=== PATIENT | male | born 1975 | race Caucasian/White ===

== ENCOUNTER 2022-10-07 06:07 | Inpatient (IN) ==
[2022-10-07] MEDS ORDERED: ACETAMINOPHEN 1,000 MG/100 ML VIAL IV STA (06:29)
[2022-10-07] MEDS ORDERED: SODIUM CHLORIDE 0.9% 1000ML 1,000 ML IV SCH (06:30)
[2022-10-07] MEDS ORDERED: CEFEPIME 2,000 MG/20 ML VIAL IV STA (06:35)
--- NOTE | 2022-10-07 06:41 | Emergency Department Note ---
History of Present Illness General Chief complaint: Fever Stated complaint: HAD CHEMO ON MONDAY HAS FEVER Time Seen by Provider: 10/07/22 06:29 History of Present Illness Provider complaint: Fever Onset (ago): day(s) 1 Maximum Pain Intensity: 5 Associated symptoms: + fever/chills 46-year-old male with history of pancreatic cancer on chemotherapy presents emergency department for fever. Fever began yesterday at 2330. Tmax one 2.1. Patient reports he took Tylenol at 0530 this morning. He reports no nausea vom iting diarrhea chest pain abdominal pain. No hematuria dysuria melena hematochezia. No neck pain. No rash. Patient reports his second round of chemotherapy just began and he had his infusion done earlier this week. Home Medications Medication Instructions Recorded Confirmed Type lactobacillus combination no.9 4 2 cell PO QAM 08/03/22 10/07/22 History billion cell capsule (Adult 50 Plus Probiotic) multivitamin 1 tab PO QAM 08/03/22 10/07/22 History omega 2-dyf-eim-fish oil 100 1 cap PO QAM 08/03/22 10/07/22 History mg-160 mg-1,000 mg capsule (Fish Oil) oxycodone 5 mg tablet 5 mg PO .q4-6h PRN pain #60 tabs 09/06/22 10/07/22 Rx ondansetron 8 mg disintegrating 8 mg PO Q8H PRN Nausea And Vomiting 10/07/22 10/07/22 History tablet Allergies Allergy/AdvReac Type Severity Reaction Status Date / Time No Known Allergies Allergy Verified 09/16/22 05:49 Past Med/Surg History Medical History Facial fracture entered 08/03/22 per EMR, however not noted in office visit from that date GERD (gastroesophageal reflux disease) History of COVID-01 December 2020 Pancreatitis end of July 2022 treated at [facility] and [facility]. Positive colorectal cancer screening using Cologuard test per patient -> awaiting to have colonoscopy scheduled. Surgical History History of ERCP with stent placement at [facility] 08/2022. History of facial surgery (~1993) has a metal plate left near the temporal area. History of surgery on right wrist Hx of endoscopy Endoscopic ultrasonography at [facility] first of august 2022 with a pancreatic biopsy Port-A-Cath in place (09/16/22) Insertion Access Port with Fluoroscopy(Left) - Lizzie Raymond, S/P ACL surgery RT S/P tonsillectomy and adenoidectomy S/P wisdom tooth extraction Family History Mother Esophageal cancer Grandfather (Maternal) Bladder cancer Father , MVA MVA (motor vehicle accident) Denies family history of Ovarian cancer Prostate cancer Myocardial infarction Breast cancer Colorectal cancer Social History Smoking Status: Former smoker Tobacco Type: Cigarettes, E-cigarettes / Vaping and Smokeless Tobacco (Dip or Chew) Age Started Using Tobacco: 20; Age Quit Using Tobacco: 33; packs per day: 1; Second Hand Exposure: No; Do You Dip or Chew Tobacco: No (quit in his 20's); Hx Alcohol Use: No Hx Substance Use: No Preferred Language: Turkmen Communication Ability: Effective Visual Impairment: No Limitations Hearing Ability: Normal 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 Required: No Beliefs That Will Affect Care: None marital status: Current Living Situation: Spouse current occupational status: employed 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 How many Children do You have: 2 Feels Safe at Home: Yes Childhood Exposure to Second-Hand Smoke: Yes Diet: other and regular Diet Comment: Low fat during the past year weight has: decreased > 10 lbs Dental Care, Regularly: Yes Physical Activity Frequency: 5-6 Times per Week Seatbelt Use: always Sunscreen Use: Yes Assistive Devices: Glasses Physical Exam Vital Signs Vital Signs - 24 hr 10/07/22 06:15 10/07/22 06:59 10/07/22 07:30 Temperature 37.9 C H Temperature Source Oral Pulse Rate 85 Pulse Rate [Apical] 71 Respiratory Rate 18 20 Respiratory Effort / Characteristics Non-Labored Spontaneous Non-Labored Respiratory Depth Normal Blood Pressure 127/77 Blood Pressure [Left Arm] 95/76 L Blood Pressure Mean 93 Blood Pressure Mean [Left Arm] 82 Pulse Oximetry 95 100 95 Oxygen Delivery Method Room Air Room Air Room Air Sepsis Recent Fever Within 48 Hours Yes Sepsis New/Unexplained Change in Mental Status No Sepsis Action Taken by Nursing No Action Required 10/07/22 07:36 10/07/22 07:54 10/07/22 08:08 Temperature Temperature Source Pulse Rate 72 Pulse Rate [Apical] 76 80 Respiratory Rate 17 13 Respiratory Effort / Characteristics Non-Labored Respiratory Depth Blood Pressure Blood Pressure [Left Arm] 112/77 124/79 Blood Pressure Mean Blood Pressure Mean [Left Arm] 88 94 Pulse Oximetry 95 95 Oxygen Delivery Method Room Air Room Air Sepsis Recent Fever Within 48 Hours Sepsis New/Unexplained Change in Mental Status Sepsis Action Taken by Nursing 10/07/22 08:38 10/07/22 08:57 10/07/22 09:08 Temperature 36.5 C Temperature Source Oral Pulse Rate Pulse Rate [Apical] 70 70 Respiratory Rate 20 18 Respiratory Effort / Characteristics Non-Labored Respiratory Depth Blood Pressure Blood Pressure [Left Arm] 107/71 119/77 Blood Pressure Mean Blood Pressure Mean [Left Arm] 83 91 Pulse Oximetry 96 96 Oxygen Delivery Method Room Air Room Air Sepsis Recent Fever Within 48 Hours Sepsis New/Unexplained Change in Mental Status Sepsis Action Taken by Nursing 10/07/22 09:41 Temperature Temperature Source Pulse Rate Pulse Rate [Apical] 68 Respiratory Rate 19 Respiratory Effort / Characteristics Non-Labored Respiratory Depth Blood Pressure Blood Pressure [Left Arm] 116/75 Blood Pressure Mean Blood Pressure Mean [Left Arm] 88 Pulse Oximetry 96 Oxygen Delivery Method Room Air Sepsis Recent Fever Within 48 Hours Sepsis New/Unexplained Change in Mental Status Sepsis Action Taken by Nursing Physical Exam GENERAL: He is oriented to person, place, and time. He appears well-developed and well-nourished. He does not appear distressed. HENT: Exam performed. - Head: Normocephalic and atraumatic. - Right Ear: External ear normal. No mastoid erythema - Left Ear: External ear normal. No mastoid erythema - Mouth/Throat: The oropharynx is clear and moist. No trismus in the jaw. No dental abscesses or uvula swelling. No oropharyngeal exudate or tonsillar abscesses. EYES: Conjunctivae and EOM are normal. Pupils are equal, round, and reactive to light. Right eye exhibits no discharge. Left eye exhibits no discharge. No scleral icterus. NECK: Normal range of motion. Neck supple. No JVD present. No rigidity. No tracheal deviation and normal range of motion present. CV: Normal rate, regular rhythm, normal heart sounds and intact distal pulses. There is no peripheral edema. Palpable radial pulses bue. PULM/CHEST: Effort normal and breath sounds normal. No respiratory distress. No stridor. He has no wheezes. He has no rales. - Chest Wall: He exhibits no tenderness. ABD: The abdomen is soft.There is no tenderness. There is no rebound, no guarding. MUSC/SKEL: Normal range of motion. There is no peripheral edema, tenderness or deformity. LYMPH: No cervical adenopathy. NEURO: He is alert and oriented to person, place, and time. He has normal strength. No cranial nerve deficit or sensory deficit. Coordination and gait normal. GCS eye subscore is 4. GCS verbal subscore is 5. GCS motor subscore is 6. Cerebellar tests wnl. SKIN: Skin is warm and dry. He is not diaphoretic. PSYCH: He has a normal mood and affect. Behavior is normal. Judgment and thought content normal. Course Course 06: The patient was evaluated in room C8. A complete history and physical exam was performed Cardiac monitoring: An order was placed for continuous cardiac monitoring. The monitor shows a rate of 80 with sinus rhythm interpreted by md [id number]: Vital signs stable. Labs within normal limits with exception of elevated procalcitonin 0.54. Discussed case with oncology on-call Dr. Veálsquez who agrees with plan to admit the patient and start antibiotics. [facility] hospitalist team will be contacted for admission. 0817: Spoke with Dr. San [facility] [place] [place] hospitalist who states he will evaluate the patient for admission Administered Medications Discontinued Medications Sodium Chloride (Nss 1000ml) 1,000 mls @ 999 mls/hr IV .Q1H1M [facility] Stop: 10/07/22 07:30 Last Infusion: 10/07/22 08:23 Dose: 0 mls/hr Documented By: Admin: 10/07/22 07:22 Dose: 999 mls/hr Documented By: ML Acetaminophen (Ofirmev) 1,000 mg in 100 mls @ 400 mls/hr IV NOW STA Stop: 10/07/22 06:43 Last Admin: 10/07/22 09:18 Dose: Not Given Documented By: ML Cefepime HCl (Maxipime) 2,000 mg in 20 mls @ 5 mls/min IV NOW STA; Protocol Stop: 10/07/22 06:38 Last Admin: 10/07/22 07:22 Dose: 5 mls/min Documented By: JAQUELINE Medical Decision Making Laboratory Data Attestation: I reviewed the patient's lab results. 10/07/22 06:54 10/07/22 06:54 Lab Results 10/07/22 10/07/22 10/07/22 Range/Units 06:41 06:54 06:54 WBC 4.96 (4.8-10.8) K/ul RBC 5.12 (4.70-6.10) M/uL Hgb 14.4 (14.0-18.0) g/dl Hct 41.7 L (42.0-52.0) % MCV 81.4 (80.0-100.0) fL MCH 28.1 (25.0-34.0) pg MCHC 34.5 (32.0-36.0) g/dL RDW Std Deviation 43.9 (36.4-46.3) fL RDW Coeff of Natalie 14.9 H (11.5-14.5) % Plt Count 170 (130-400) K/uL MPV 9.6 (9.4-12.4) fL Immature Gran % (Auto) 0.6 % Neut % (Auto) 73.8 % Lymph % (Auto) 19.6 % [place] % (Auto) 4.4 % Eos % (Auto) 1.4 % Baso % (Auto) 0.2 % Neut # (Auto) 3.66 (1.40-6.50) K/uL Lymph # (Auto) 0.97 L (1.20-3.40) K/uL [place] # (Auto) 0.22 (0.11-0.59) K/uL Eos # (Auto) 0.07 (0.00-0.50) K/uL Baso # (Auto) 0.01 (0.00-0.20) K/uL Immature Gran # (Auto) 0.03 (0.01-0.20) K/uL PT 11.6 (9.0-12.0) Seconds INR 1.1 (0.9-1.1) APTT 28.2 (21.0-31.0) Seconds PTT Ratio 1.0 Sodium (136-145) mmol/L Potassium (3.5-5.1) mmol/L Chloride (98-107) mmol/L Carbon Dioxide (21-32) mmol/L Anion Gap (3-11) BUN (6-23) mg/dl Creatinine (0.6-1.4) mg/dl Est Cr Clr Drug Dosing ml/min Est GFR ( Amer) ml/min Est GFR (Non-Af Amer) ml/min BUN/Creatinine Ratio (10-20) Glucose (70-99(Fasting)) mg/dl Lactate (0.4-2.0) mmol/L Calcium (8.6-10.3) mg/dl Magnesium (1.7-2.4) mg/dl Total Bilirubin (0.2-1.0) mg/dl Direct Bilirubin (0-0.2) mg/dl AST (13-39) U/L ALT (7-52) U/L Alkaline Phosphatase (34-104) U/L Troponin I High Sens (0-20) pg/ml Total Protein (6.0-8.3) gm/dl Albumin (3.4-5.0) gm/dl Lipase (11-82) U/L Procalcitonin (0-0.5) ng/ml Adenovirus (PCR) Not Detected (NotDetected) B. pertussis DNA (PCR) Not Detected (NotDetected) B.parapertussis DNA PCR Not Detected (NotDetected) C. pneumoniae DNA (PCR) Not Detected (NotDetected) Coronavirus OC43 (PCR) Not Detected (NotDetected) Coronavirus HKU1 (PCR) Not Detected (NotDetected) Coronavirus 229E (PCR) Not Detected (NotDetected) SARS-CoV-2 (PCR) Not Detected (NotDetected) Coronavirus NL63 (PCR) Not Detected (NotDetected) Human Metapneumovir PCR Not Detected (NotDetected) Influenza Type A (PCR) Not Detected (NotDetected) Influenza Type B (PCR) Not Detected (NotDetected) M. pneumoniae (PCR) Not Detected (NotDetected) Parainfluenza 1 (PCR) Not Detected (NotDetected) Parainfluenza 2 (PCR) Not Detected (NotDetected) Parainfluenza 3 (PCR) Not Detected (NotDetected) Parainfluenza 4 (PCR) Not Detected (NotDetected) RSV (PCR) Not Detected (NotDetected) Entero/Rhino (PCR) Not Detected (NotDetected) 10/07/22 10/07/22 10/07/22 Range/Units 06:54 06:54 06:54 WBC (4.8-10.8) K/ul RBC (4.70-6.10) M/uL Hgb (14.0-18.0) g/dl Hct (42.0-52.0) % MCV (80.0-100.0) fL MCH (25.0-34.0) pg MCHC (32.0-36.0) g/dL RDW Std Deviation (36.4-46.3) fL RDW Coeff of Natalie (11.5-14.5) % Plt Count (130-400) K/uL MPV (9.4-12.4) fL Immature Gran % (Auto) % Neut % (Auto) % Lymph % (Auto) % [place] % (Auto) % Eos % (Auto) % Baso % (Auto) % Neut # (Auto) (1.40-6.50) K/uL Lymph # (Auto) (1.20-3.40) K/uL [place] # (Auto) (0.11-0.59) K/uL Eos # (Auto) (0.00-0.50) K/uL Baso # (Auto) (0.00-0.20) K/uL Immature Gran # (Auto) (0.01-0.20) K/uL PT (9.0-12.0) Seconds INR (0.9-1.1) APTT (21.0-31.0) Seconds PTT Ratio Sodium 136 (136-145) mmol/L Potassium 4.1 (3.5-5.1) mmol/L Chloride 100 (98-107) mmol/L Carbon Dioxide 29 (21-32) mmol/L Anion Gap 7 (3-11) BUN 29 H (6-23) mg/dl Creatinine 1.14 (0.6-1.4) mg/dl Est Cr Clr Drug Dosing 87.0 ml/min Est GFR ( Amer) 87.7 ml/min Est GFR (Non-Af Amer) 75.6 ml/min BUN/Creatinine Ratio 25.4 H (10-20) Glucose 109 H (70-99(Fasting)) mg/dl Lactate 1.0 (0.4-2.0) mmol/L Calcium 9.3 (8.6-10.3) mg/dl Magnesium 1.8 (1.7-2.4) mg/dl Total Bilirubin 0.7 (0.2-1.0) mg/dl Direct Bilirubin 0.2 (0-0.2) mg/dl AST 23 (13-39) U/L ALT 51 (7-52) U/L Alkaline Phosphatase 101 (34-104) U/L Troponin I High Sens 4.1 (0-20) pg/ml Total Protein 7.0 (6.0-8.3) gm/dl Albumin 4.1 (3.4-5.0) gm/dl Lipase 109 H (11-82) U/L Procalcitonin 0.54 H (0-0.5) ng/ml Adenovirus (PCR) (NotDetected) B. pertussis DNA (PCR) (NotDetected) B.parapertussis DNA PCR (NotDetected) C. pneumoniae DNA (PCR) (NotDetected) Coronavirus OC43 (PCR) (NotDetected) Coronavirus HKU1 (PCR) (NotDetected) Coronavirus 229E (PCR) (NotDetected) SARS-CoV-2 (PCR) (NotDetected) Coronavirus NL63 (PCR) (NotDetected) Human Metapneumovir PCR (NotDetected) Influenza Type A (PCR) (NotDetected) Influenza Type B (PCR) (NotDetected) M. pneumoniae (PCR) (NotDetected) Parainfluenza 1 (PCR) (NotDetected) Parainfluenza 2 (PCR) (NotDetected) Parainfluenza 3 (PCR) (NotDetected) Parainfluenza 4 (PCR) (NotDetected) RSV (PCR) (NotDetected) Entero/Rhino (PCR) (NotDetected) Imaging Data Attestation: I personally reviewed and interpreted this imaging study as follows: My Impression: Chest x-ray negative. Airway clear. No pneumothorax. No consolidation. No cardiomegaly or cephalization.. No free air under the diaphragm. No fractures of the skeletal structures. Radiologist's Impression: Chest X-Ray 10/07/22 06:29 XR chest 1V portable CLINICAL HISTORY: Sepsis. COMPARISON STUDY: Chest radiograph September 16, 2022. FINDINGS: Left subclavian [id number] is unchanged in position. Lung volumes are normal. Lungs are clear. There is no pneumothorax or pleural effusion. Cardiac size is normal. Mediastinal contours are normal. There is no evidence for pulmonary edema. IMPRESSION: No acute cardiopulmonary findings. ACT 112: Negative or not required by law. Electronically signed by: Foreign Brewster M.D. 10/07/2022 7:13 AM ECG Data Attestation: I personally reviewed and interpreted this ECG as follows: Rate (beats per minute): 81 Rhythm: + normal sinus ECG Intervals/blocks: + Normal QRS, + Normal CA and + Normal QT-c ECG ST segments: + Normal ST segments [facility] Narrative 0629: The patient was evaluated in room C8. A complete history and physical exam was performed Cardiac monitoring: An order was placed for continuous cardiac monitoring. The monitor shows a rate of 80 with sinus rhythm interpreted by me 0756: Vital signs stable. Labs within normal limits with exception of elevated procalcitonin 0.54. Discussed case with oncology on-call Dr. Velásquez who agrees with plan to admit the patient and start antibiotics. [facility] hospitalist team will be contacted for admission. 0817: Spoke with Dr. San [facility] [place] [place] hospitalist who states he will evaluate the patient for admission Impression & Plan Pancreatic carcinoma, Fever Discharge Plan Visit Data Chief Complaint: Fever Stated Complaint: HAD CHEMO ON MONDAY HAS FEVER ED Provider: Dany Gaytan Discharge Problem: Pancreatic carcinoma, Fever Patient Disposition: Being Evaluated by Hospitalist Forms Stand Alone Forms: My [facility] Prescriptions Prescriptions: No Action oxycodone 5 mg tablet 5 mg PO .q4-6h PRN (Reason: pain) Qty: 60 0RF Adult 50 Plus Probiotic 4 billion cell capsule 2 cell PO QAM Rx Instructions: Takes 2 capsules by mouth every morning multivitamin Tablet 1 tab PO QAM Fish Oil 100-160-1,000 mg capsule 1 cap PO QAM ondansetron 8 mg tablet,disintegrating 8 mg PO Q8H PRN (Reason: Nausea And Vomiting) Referrals Referrals: Dereck Wilkerson, [Primary Care Provider] -
--- NOTE | 2022-10-07 07:14 | XRay Report ---
XR chest 1V portable CLINICAL HISTORY: Sepsis. COMPARISON STUDY: Chest radiograph September 16, 2022. FINDINGS: Left subclavian Subkot-[id number]-Iibo is unchanged in position. Lung volumes are normal. Lungs are clear. There is no pneumothorax or pleural effusion. Cardiac size is normal. Mediastinal contours are normal. There is no evidence for pulmonary edema. IMPRESSION: No acute cardiopulmonary findings. ACT 112: Negative or not required by law. Electronically signed by: Foreign Brewster M.D. 10/07/2022 7:13 AM
[2022-10-07 07:20] LABS: Basophils # (auto) 0.01 K/uL (0.00-0.20); Basophils % (auto) 0.2 %; Eosinophils # (auto) 0.07 K/uL (0.00-0.50); Eosinophils % (auto) 1.4 %; Hematocrit (blood only) 41.7 % (42.0-52.0); Hemoglobin 14.4 g/dl (14.0-18.0); Immature Granulocytes # (auto) 0.03 K/uL (0.01-0.20); Immature Granulocytes % (auto) 0.6 %; Lymphocytes # (auto) 0.97 K/uL (1.20-3.40); Lymphocytes % (auto) 19.6 %; Mean Corpuscular Hemoglobin 28.1 pg (25.0-34.0); Mean Corpuscular Hgb Conc 34.5 g/dL (32.0-36.0); Mean Corpuscular Volume 81.4 fL (80.0-100.0); Mean Platelet Volume 9.6 fL (9.4-12.4); Monocytes # (auto) 0.22 K/uL (0.11-0.59); Monocytes % (auto) 4.4 %; Neutrophils # (auto) 3.66 K/uL (1.40-6.50); Neutrophils % (auto) 73.8 %; Platelet Count 170 K/uL (130-400); RDW Coefficient of Variation 14.9 % (11.5-14.5); RDW Standard Deviation 43.9 fL (36.4-46.3); Red Blood Count 5.12 M/uL (4.70-6.10); White Blood Count 4.96 K/ul (4.8-10.8)
[2022-10-07 07:32] LABS: INR 1.1 (0.9-1.1); Partial Thromboplastin Time 28.2 Seconds (21.0-31.0); Prothrombin Time 11.6 Seconds (9.0-12.0)
[2022-10-07 07:36] LABS: Albumin Level 4.1 gm/dl (3.4-5.0); BUN Creatinine Ratio 25.4 (10-20); Bilirubin Direct 0.2 mg/dl (0-0.2); Bilirubin,Total 0.7 mg/dl (0.2-1.0); Calcium 9.3 mg/dl (8.6-10.3); Est GFR (African American) 87.7 ml/min; Est GFR (Non-African American) 75.6 ml/min; Magnesium 1.8 mg/dl (1.7-2.4); Potassium 4.1 mmol/L (3.5-5.1)
[2022-10-07 07:43] LABS: Troponin I High Sensitivity 4.1 pg/ml (0-20)
[2022-10-07 08:05] LABS: Adenovirus PCR Not Detected (NotDetected); Bordetella parapertussis PCR Not Detected (NotDetected); Bordetella pertussis PCR Not Detected (NotDetected); Chlamydia pneumoniae PCR Not Detected (NotDetected); Coronavirus 229E PCR Not Detected (NotDetected); Coronavirus CoV-2 (COVID19)PCR Not Detected (NotDetected); Coronavirus HKU1 PCR Not Detected (NotDetected); Coronavirus NL63 PCR Not Detected (NotDetected); Coronavirus OC43PCR Not Detected (NotDetected); Human Metapneumovirus PCR Not Detected (NotDetected); Influenza A PCR Not Detected (NotDetected); Influenza B PCR Not Detected (NotDetected); Mycoplasma pneumoniae PCR Not Detected (NotDetected); Parainfluenza Virus 1 PCR Not Detected (NotDetected); Parainfluenza Virus 2 PCR Not Detected (NotDetected); Parainfluenza Virus 3 PCR Not Detected (NotDetected); Parainfluenza Virus 4 PCR Not Detected (NotDetected); Respiratory Syncytial VirusPCR Not Detected (NotDetected); Rhinovirus/Enterovirus PCR Not Detected (NotDetected)
[2022-10-07] MEDS ORDERED: ACETAMINOPHEN 325 MG TAB PO PRN (09:28)
--- NOTE | 2022-10-07 09:33 | History & Physical Report ---
Date of Service October 07, 2022 Assessment & Plan (1) Fever: Plan: Developed after second round of chemotherapy. He denies viral symptoms. No nausea vomiting or diarrhea. Blood cultures pending. Continue cefepime for now (2) Pancreatic carcinoma: Plan: He recently received his second round of chemotherapy. Oncology consultation pending Plan Hopefully home soon if blood cultures are negative and fever abates History of Present Illness Chief Complaint: Fever and chills Primary Care Provider: Dereck Wilkerson DO 46-year-old white male with a history of pancreatic cancer. He has received his second dose of chemotherapy and shortly thereafter developed fever and chills. He came to the ED for evaluation. He is not neutropenic. He has been given cefepime and blood cultures were obtained and pending. He does not appear ill. He meets admission criteria apparently due to the fact he is receiving chemotherapy. He will be admitted for further evaluation and treatment. Oncology has been consulted. Continue cefepime for now Allergies Allergy/AdvReac Type Severity Reaction Status Date / Time No Known Allergies Allergy Verified 09/16/22 05:49 Home Medications Medication Instructions Recorded Confirmed Type lactobacillus combination no.9 4 2 cell PO QAM 08/03/22 10/07/22 History billion cell capsule (Adult 50 Plus Probiotic) multivitamin 1 tab PO QAM 08/03/22 10/07/22 History omega 2-awl-pxh-fish oil 100 1 cap PO QAM 08/03/22 10/07/22 History mg-160 mg-1,000 mg capsule (Fish Oil) oxycodone 5 mg tablet 5 mg PO .q4-6h PRN pain #60 tabs 09/06/22 10/07/22 Rx ondansetron 8 mg disintegrating 8 mg PO Q8H PRN Nausea And Vomiting 10/07/22 10/07/22 History tablet Past Med/Surg History Medical History Facial fracture entered 08/03/22 per EMR, however not noted in office visit from that date GERD (gastroesophageal reflux disease) History of COVID-01 December 2020 Pancreatitis end of July 2022 treated at [facility] and [facility]. Positive colorectal cancer screening using Cologuard test per patient -> awaiting to have colonoscopy scheduled. Surgical History History of ERCP with stent placement at [facility] 08/2022. History of facial surgery (~1993) has a metal plate left near the temporal area. History of surgery on right wrist Hx of endoscopy Endoscopic ultrasonography at [facility] first of august 2022 with a pancreatic biopsy Port-A-Cath in place (09/16/22) Insertion Access Port with Fluoroscopy(Left) - Lizzie Raymond, S/P ACL surgery RT S/P tonsillectomy and adenoidectomy S/P wisdom tooth extraction Family History Mother Esophageal cancer Grandfather (Maternal) Bladder cancer Father , MVA MVA (motor vehicle accident) Denies family history of Ovarian cancer Prostate cancer Myocardial infarction Breast cancer Colorectal cancer Social History Smoking Status: Former smoker Tobacco Type: Cigarettes, E-cigarettes / Vaping and Smokeless Tobacco (Dip or Chew) Age Started Using Tobacco: 20; Age Quit Using Tobacco: 33; packs per day: 1; Second Hand Exposure: No; Do You Dip or Chew Tobacco: No (quit in his 20's); Hx Alcohol Use: No Hx Substance Use: No Preferred Language: Austrian Communication Ability: Effective Visual Impairment: No Limitations Hearing Ability: Normal Patient Services Assistant Required: No Beliefs That Will Affect Care: None marital status: Current Living Situation: Spouse current occupational status: employed 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 He denies viral symptoms. No diarrhea ENT-no blurred vision, no double vision, no epistaxis, no sore throat Respiratory-no cough, no wheezing, no shortness of breath Cardiac-no palpitations, no chest pain, no syncope GI-no nausea, vomiting, diarrhea, melena, hematochezia -no urinary retention, no urinary incontinence, no dysuria, no hematuria Musculoskeletal-no joint pain, no muscle tenderness Skin-no bruising, no rashes, no pruritus Neuro-no isolated weakness, no paresthesia, no weakness Psych-no depression, no anxiety Physical Exam Physical Exam: General-alert and oriented x3, no fevers, no chills HEENT-head atraumatic and normocephalic, pupils equal and reactive to light, extraocular muscles intact Neck-no lymphadenopathy or thyromegaly, trachea midline Chest-clear to auscultation percussion. No rales wheezing or rhonchi Cardiac-regular rate and rhythm, normal S1 and S2 Abdomen-normal bowel sounds, nontender, no hepatosplenomegaly Extremities-no cyanosis, clubbing, or edema Neuro-cranial nerves II through XII intact, motor and sensory function within normal limits, strength symmetrical , no focal deficits Psych-normal affect, normal mood Results & Data Results & Data Vital Signs (Past 12 Hours) Vital Signs Temp Pulse Pulse Resp BP BP Pulse Ox 10/07/22 09:08 70 18 119/77 96 10/07/22 08:57 36.5 C 10/07/22 08:38 70 20 107/71 96 10/07/22 08:08 80 13 124/79 95 10/07/22 07:54 76 17 112/77 95 10/07/22 07:36 72 10/07/22 07:30 71 20 95/76 L 95 10/07/22 06:59 100 10/07/22 06:15 37.9 C H 85 18 127/77 95 O2 Del Method 10/07/22 09:08 Room Air 10/07/22 08:57 10/07/22 08:38 Room Air 10/07/22 08:08 Room Air 10/07/22 07:54 Room Air 10/07/22 07:36 10/07/22 07:30 Room Air 10/07/22 06:59 Room Air 10/07/22 06:15 Room Air Laboratory Results 10/07/22 06:54 10/07/22 06:54 Code Status & VTE Plan Code Status Full code PG Care Time/CCT Total # of Minutes Spent Total Time Spent with Patient: Total time spent is greater than 50% in coordination of care (as documented) at patient's floor/unit and/or counseling patient: Coding Level of Care Code 80116 INT INP/OBS CARE Diagnoses Fever R50.9 Pancreatic carcinoma C25.9
[2022-10-07] MEDS ORDERED: ONDANSETRON 8MG OD TAB PO PRN (12:23)
[2022-10-07] MEDS ORDERED: oxyCODONE HCL IR 5 MG TAB (IMMEDIATE RELEASE) PO PRN (12:23)
[2022-10-07 13:33] LABS: Basophils # (auto) 0.01 K/uL (0.00-0.20); Basophils % (auto) 0.2 %; Eosinophils # (auto) 0.08 K/uL (0.00-0.50); Hematocrit (blood only) 40.8 % (42.0-52.0); Hemoglobin 14.3 g/dl (14.0-18.0); Immature Granulocytes # (auto) 0.01 K/uL (0.01-0.20); Immature Granulocytes % (auto) 0.2 %; Lymphocytes # (auto) 0.91 K/uL (1.20-3.40); Lymphocytes % (auto) 22.7 %; Mean Corpuscular Hemoglobin 28.5 pg (25.0-34.0); Mean Corpuscular Volume 81.4 fL (80.0-100.0); Mean Platelet Volume 9.9 fL (9.4-12.4); Monocytes # (auto) 0.18 K/uL (0.11-0.59); Monocytes % (auto) 4.5 %; Neutrophils # (auto) 2.82 K/uL (1.40-6.50); Neutrophils % (auto) 70.4 %; Platelet Count 158 K/uL (130-400); RDW Standard Deviation 44.4 fL (36.4-46.3); Red Blood Count 5.01 M/uL (4.70-6.10); White Blood Count 4.01 K/ul (4.8-10.8)
[2022-10-07 13:46] LABS: Albumin Globulin Ratio 1.3 (0.9-2); Albumin Level 3.9 gm/dl (3.4-5.0); BUN Creatinine Ratio 26.6 (10-20); Bilirubin,Total 0.6 mg/dl (0.2-1.0); Calcium 8.9 mg/dl (8.6-10.3); Creatinine Clr Calc Pharmacy 105.5 ml/min; Est GFR (African American) 110.7 ml/min; Est GFR (Non-African American) 95.5 ml/min; Globulin 2.9 gm/dl (2.5-4.0); Total Protein 6.8 gm/dl (6.0-8.3)
[2022-10-07] MEDS ORDERED: CEFEPIME 2,000 MG in SYRINGE 0 ML IV SCH (15:15)
--- NOTE | 2022-10-07 16:30 | Electrocardiogram Report ---
Test Reason : Blood Pressure : / mmHG Vent. Rate : 081 BPM Atrial Rate : 081 BPM P-R Int : 152 ms QRS Dur : 096 ms QT Int : 366 ms P-R-T Axes : 055 064 070 degrees QTc Int : 425 ms Normal sinus rhythm Cannot rule out Anterior infarct , age undetermined Abnormal ECG No previous ECGs available Confirmed by Jaun Kessler ([id number]) on 10/07/2022 4:30:21 PM Referred By: Confirmed By:Jaun Kessler
[2022-10-07] MEDS ORDERED: HEPARIN 100 UNIT/ML 5ML FLUSH ONE (16:59)
[2022-10-08] MEDS ORDERED: OMEGA-3 (PURIFIED FISH OIL) 1 GM CAP PO SCH (09:00)
[2022-10-08] MEDS ORDERED: MULTIVITAMIN TAB PO SCH (09:00)
== END 2022-10-07 17:10 | disposition left against medical advice (07) | DRG 864 ==
LOC: ED 06:07 → EDINP 09:33